=== PATIENT | female | born 1995 | race African-American/Black ===

== ENCOUNTER 2021-04-01 01:16 | Inpatient (IN) ==
[2021-04-01] MEDS ORDERED: MEPERIDINE 50 MG/1 ML VIAL IV PRN (01:39)
[2021-04-01] MEDS ORDERED: ONDANSETRON 4 MG/2 ML VIAL IV PRN (01:39)
[2021-04-01] MEDS ORDERED: BUTORPHANOL 2 MG/ML VIAL IV PRN (01:39)
[2021-04-01 02:00] LABS: Basophils % 0.3 % (0.0-0.8); Eosinophils # 0.1 10*3/uL (0.0-0.87); Hematocrit 28.2 VOL% (35.7-47.0); Hemoglobin 8.7 GM/DL (12.0-16.0); Immature Granulocytes Absolute 0.06 #; Lymphocytes # 1.5 10*3/uL (1.4-4.0); Lymphocytes % 25.6 % (21.3-54.2); Mean Corpuscular HGB Conc 30.9 GM/DL (32-36); Mean Corpuscular Volume 79.4 FL (87-102); Mean Platelet Volume 9.6 FL (9.6-12.0); Monocytes % 15.7 % (1.7-12.7); Neutrophils % 56.4 % (38.7-73.9); Platelet Count 250 T/CUMM (130-400); Red Blood Count 3.55 MC/CUMM (3.8-5.5); Red Cell Distribution Width 14.6 % (9.3-17.3); White Blood Count 5.8 T/CUMM (4-12)
[2021-04-01] MEDS ORDERED: LACTATED RINGERS 1,000 ML IV SCH ×2 (02:00→08:00)
[2021-04-01 02:22] LABS: Eosinophils 1 % (0-10); Lymphocytes 25 % (20-55); Platelet Estimate Adequate; Segmented Neutrophils 63 % (50-85); Total Cells Counted 100
[2021-04-01 02:23] LABS: Hypochromia 1+; Microcytosis 1+
[2021-04-01 02:26] LABS: Albumin 2.5 G/DL (3.4-5.0); Bilirubin,Total 0.4 MG/DL (0.20-1.00); Calcium 8.5 MG/DL (8.5-10.1); Osmolality,Calculated 272.7 MOS/KG (273-304); Potassium 3.7 MMOL/L (3.5-5.1); Total Protein 7.1 G/DL (6.4-8.2)
[2021-04-01] MEDS ORDERED: OXYTOCIN/LR 20 UNIT/1,000 ML BAG IV SCH (07:30)
[2021-04-01] MEDS ORDERED: diphenhydrAMINE 50 MG/1 ML VIAL IV PRN (07:31)
[2021-04-01] MEDS ORDERED: CITRIC ACID/SODIUM CITRATE 30 ML UDCUP PO ONE (07:31)
[2021-04-01] MEDS ORDERED: ePHEDrine 50 MG/ML VIAL IV PRN (07:31)
[2021-04-01] MEDS ORDERED: FAMOTIDINE 20 MG/2 ML VIAL IV ONE (07:31)
[2021-04-01] MEDS ORDERED: LACTATED RINGERS 1,000 ML IV ONE (07:31)
[2021-04-01] MEDS ORDERED: NALOXONE 0.4 MG/ML VIAL IV PRN (07:31)
[2021-04-01] MEDS ORDERED: OXYTOCIN/LR 20 UNIT/1,000 ML BAG IV ONE ×2 (07:32→14:51)
[2021-04-01] MEDS ORDERED: fentaNYL 2 MCG/ROPIV 0.2% EPID 100 ML EPIDURAL SCH (08:00)
[2021-04-01 11:50] LABS: Bacteria,Urine Occasional /HPF (Few); Bilirubin,Urine Negative (Negative); Blood, Urine Negative (Negative); Glucose,Urine (UA) Negative (Negative); Ketones,Urine 20 mg/dL (Negative); Mucus,Urine Many /LPF (Occasional); Nitrite,Urine Negative (Negative); Protein,Urine Negative; RBC,Urine 11 /HPF (0-4); Squamous Epithelial Cell,Urine Occasional /HPF (0-10); Urine Appearance CLEAR (Clear); Urine Color Yellow (Yellow)
[2021-04-01] MEDS ORDERED: miSOPROStoL 200 MCG TABLET ONE (11:55)
[2021-04-01] MEDS ORDERED: CARBOPROST TROMETHAMINE 250 MCG/ML AMP IM ONE (11:56)
[2021-04-01] MEDS ORDERED: METHYLERGONOVINE 0.2 MG/1 ML AMP ONE (11:56)
[2021-04-01 13:16] LABS: Cord Venous Blood HCO3 19.2 MMOL/L; Cord Venous Blood PCO2 39.1 MMHG; Cord Venous Blood PO2 30.6
[2021-04-01] MEDS ORDERED: LANOLIN 50% CREAM 0.3 OZ TUBE TOP PRN (14:51)
[2021-04-01] MEDS ORDERED: MEASLES/MUMPS/RUBELLA VACCINE 0.5 ML VIAL SUBCUT ONE (14:51)
[2021-04-01] MEDS ORDERED: BISACODYL 10 MG SUPP RECTAL PRN (14:51)
[2021-04-01] MEDS ORDERED: ACETAMINOPHEN 325 MG TABLET PO PRN (14:51)
[2021-04-01] MEDS ORDERED: WITCH HAZEL PADS 100/JAR TOP PRN (14:51)
[2021-04-01] MEDS ORDERED: BENZOCAINE 20%/MENTHOL 0.5% SPRAY 56 GM CAN TOP PRN (14:51)
[2021-04-01] MEDS ORDERED: oxyCODONE/ACETAMINOPHEN 5-325 MG TABLET PO PRN (14:51)
[2021-04-01] MEDS ORDERED: DIPH/TET/ACEL PERT BOOSTER VACCINE 0.5 ML VIAL IM ONE (14:51)
[2021-04-01] MEDS ORDERED: RHO(D) IMMUNE GLOBULIN 300 MCG SYRINGE IM ONE (14:51)
[2021-04-01] MEDS ORDERED: HYDROCORTISONE 2.5% RECTAL CREAM 30 GM TUBE TOP PRN (14:51)
[2021-04-01] MEDS: oxyCODONE/ACETAMINOPHEN 5-325 MG TABLET PO PRN (15:27)
[2021-04-01] MEDS: IBUPROFEN 800 MG TABLET PO PRN (15:27)
[2021-04-02] MEDS: oxyCODONE/ACETAMINOPHEN 5-325 MG TABLET PO PRN (02:57)
[2021-04-02] MEDS: IBUPROFEN 800 MG TABLET PO PRN ×2 (03:01→21:06)
[2021-04-02 05:37] LABS: Basophils % 0.1 % (0.0-0.8); Eosinophils # 0.1 10*3/uL (0.0-0.87); Eosinophils % 0.7 % (0.00-10.9); Hematocrit 23.7 VOL% (35.7-47.0); Hemoglobin 7.2 GM/DL (12.0-16.0); Immature Granulocytes % 0.7 %; Immature Granulocytes Absolute 0.05 #; Lymphocytes # 1.2 10*3/uL (1.4-4.0); Lymphocytes % 17.7 % (21.3-54.2); Mean Corpuscular HGB Conc 30.4 GM/DL (32-36); Mean Corpuscular Volume 79.8 FL (87-102); Mean Platelet Volume 9.7 FL (9.6-12.0); Monocytes % 12.9 % (1.7-12.7); Neutrophils % 67.9 % (38.7-73.9); Platelet Count 218 T/CUMM (130-400); Red Blood Count 2.97 MC/CUMM (3.8-5.5); Red Cell Distribution Width 14.7 % (9.3-17.3); White Blood Count 6.9 T/CUMM (4-12)
[2021-04-02] MEDS: DOCUSATE SODIUM 100 MG CAPSULE PO SCH ×2 (08:08→21:01)
[2021-04-02] MEDS: FERROUS SULFATE 325 MG TABLET PO SCH ×3 (08:09→21:01)
[2021-04-02] MEDS: MULTIVITAMIN (PRENATAL) TABLET PO SCH (08:09)
[2021-04-02] MEDS ORDERED: SODIUM CHLORIDE 0.9% 1,000 ML IV PRN (10:14)
[2021-04-02 16:12] VITALS: BP 113/77
[2021-04-02 19:08] LABS: Hematocrit 29.9 VOL% (35.7-47.0); Hemoglobin 9.3 GM/DL (12.0-16.0)
[2021-04-03] MEDS: FERROUS SULFATE 325 MG TABLET PO SCH (08:17)
[2021-04-03] MEDS: MULTIVITAMIN (PRENATAL) TABLET PO SCH (08:17)
[2021-04-03] MEDS: DOCUSATE SODIUM 100 MG CAPSULE PO SCH (08:17)
[2021-04-03] MEDS: IBUPROFEN 800 MG TABLET PO PRN (08:47)
[2021-04-03] MEDS: oxyCODONE/ACETAMINOPHEN 5-325 MG TABLET PO PRN (08:47)
[2021-04-03] MEDS ORDERED: ENOXAPARIN 40 MG/0.4 ML SYRINGE SUBCUT SCH (11:00)
== END 2021-04-03 14:46 | disposition home or self-care (01) | DRG 805 ==
LOC: N.LD 01:16 → N.OB 22:55
PROVIDERS: ADMIT Obstetrics & Gynecology; ATTEND Obstetrics & Gynecology